=== PATIENT | female | born 1935 | race Caucasian/White ===

== ENCOUNTER → 2016-08-29 | Outpatient (CLI) | payer MEDICARE, BC ==
--- NOTE | 2016-08-31 08:38 | MM ---
Reason for exam: screening (asymptomatic). Last mammogram was performed 6 months ago. History: Patient is postmenopausal and has history of high-risk lesion on a previous biopsy at age 74. Benign MG stereo VAD BX LT of the left breast, September 09, 2015. High risk left breast needle localization of both breasts, September 20, 2010. High risk left mammotome panel of the left breast, September 01, 2010. Benign left US cyst aspiration ea add of the left breast, January 04, 2006. Benign left US cyst aspiration of the left breast, January 04, 2006. Benign stereotactic core biopsy of the right breast, June 30, 2000. Benign cyst aspiration of the left breast, March 03, 1998. Physical Findings: A clinical breast exam by your physician is recommended on an annual basis and results should be correlated with mammographic findings. MG 3D Screening Mammo W/Cad Bilateral CC and MLO view(s) were taken. Prior study comparison: February 29, 2016, left breast MG 3d diag mammo w/cad LT. August 21, 2015, bilateral MG 3d diag mammo w/cad ERIN. August 09, 2011, CAD bilateral diagnostic mammogram. The breast tissue is heterogeneously dense. This may lower the sensitivity of mammography. Previous mammotome biopsy in the right and left breast. There is chronic nodularity in the left breast. New nodular focal asymmetry lower inner quadrant posterior right breast. ASSESSMENT: Incomplete: need additional imaging evaluation, BI-RAD 0 RECOMMENDATION: Special view mammogram and ultrasound of the right breast. [facility] will attempt to contact patient to return for supplemental views and ultrasound.
== END | disposition home or self-care (01) ==
LOC: RADMAMWWP 13:24
PROVIDERS: ATTEND Family Medicine
DX: Z12.31 Encounter for screening mammogram for malignant neoplasm of breast (principal)
CPT/HCPCS: 77063; G0202

== ENCOUNTER → 2016-09-06 | Outpatient (CLI) | payer MEDICARE, BC ==
--- NOTE | 2016-09-07 08:01 | MM ---
Reason for exam: additional evaluation requested from abnormal screening. Last mammogram was performed less than 1 month ago. History: Patient is postmenopausal and has history of high-risk lesion on a previous biopsy at age 74. Benign MG stereo VAD BX LT of the left breast, September 09, 2015. High risk left breast needle localization of both breasts, September 20, 2010. High risk left mammotome panel of the left breast, September 01, 2010. Benign left US cyst aspiration ea add of the left breast, January 04, 2006. Benign left US cyst aspiration of the left breast, January 04, 2006. Benign stereotactic core biopsy of the right breast, June 30, 2000. Benign cyst aspiration of the left breast, March 03, 1998. Physical Findings: Nurse Summary: 0.5cm nodule in th right breast at 12 and 3 o'clock and a 0.5cm nodule in the left breast at 12 o'clock (nurse kp). MG 3D Work Up W/Cad RT ML view(s) were taken of the right breast. Prior study comparison: August 29, 2016, bilateral MG 3d screening mammo w/cad. February 29, 2016, left breast MG 3d diag mammo w/cad LT. August 21, 2015, bilateral MG 3d diag mammo w/cad ERIN. Focal asymmetry. Area of concern does not go away on additional views. These results were verbally communicated with the patient and result sheet given to the patient on 09/06/16. ASSESSMENT: Incomplete: need additional imaging evaluation, BI-RAD 0 RECOMMENDATION: Ultrasound of both breasts. (palpable left and mammogram abnormality right)
--- NOTE | 2016-09-07 08:03 | USB ---
Reason for exam: additional evaluation requested from abnormal screening. History: Patient is postmenopausal and has history of high-risk lesion on a previous biopsy at age 74. Benign MG stereo VAD BX LT of the left breast, September 09, 2015. High risk left breast needle localization of both breasts, September 20, 2010. High risk left mammotome panel of the left breast, September 01, 2010. Benign left US cyst aspiration ea add of the left breast, January 04, 2006. Benign left US cyst aspiration of the left breast, January 04, 2006. Benign stereotactic core biopsy of the right breast, June 30, 2000. Benign cyst aspiration of the left breast, March 03, 1998. US Breast Workup Limited ERIN Right breast ultrasound demonstrates a 0.5 x 0.5 x 0.5cm round, cystic lesion at 12 o'clock, a 0.5 x 0.4 x 0.5cm round, hypoechoic lesion at 12 o'clock and a 0.3 x 0.3 x 0.4cm oval lesion too small to characterize at 6 o'clock. Left breast ultrasound demonstrates a 0.4 x 0.3 x 0.5cm oval lesion too small to characterize at BB at 12 o'clock. These results were verbally communicated with the patient and result sheet given to the patient on 09/06/16. ASSESSMENT: Probably benign, BI-RAD 3 RECOMMENDATION: Follow-up diagnostic mammogram of the right breast in 6 months. Ultrasound of both breasts in 6 months.
== END | disposition home or self-care (01) ==
LOC: RADMAMWWP 13:38
PROVIDERS: ATTEND Family Medicine
DX: R92.8 Other abnormal and inconclusive findings on diagnostic imaging of breast (principal)
CPT/HCPCS: 76642; G0206; G0279

== ENCOUNTER → 2016-12-30 | Outpatient (CLI) | payer MEDICARE, BC ==
[2016-12-30 09:48] LABS: ALT 27 U/L (9-52); AST 17 U/L (14-36); Cholesterol 152 mg/dL (<200); HDL Cholesterol 95 mg/dL (40-60); Triglycerides 66 mg/dL (<150)
== END | disposition home or self-care (01) ==
LOC: LABWHC1 09:02
PROVIDERS: ATTEND Internal Medicine Interventional Cardiology
DX: E78.2 Mixed hyperlipidemia (principal)
CPT/HCPCS: 36415; 80061; 84450; 84460

== ENCOUNTER → 2017-03-15 | Outpatient (CLI) | payer MEDICARE, BC ==
--- NOTE | 2017-03-16 10:58 | MM ---
Reason for exam: follow-up at short interval from prior study. Last mammogram was performed 6 months ago. History: Patient is postmenopausal and has history of high-risk lesion on a previous biopsy at age 74. Benign MG stereo VAD BX LT of the left breast, September 09, 2015. High risk left breast needle localization of both breasts, September 20, 2010. High risk left mammotome panel of the left breast, September 01, 2010. Benign left US cyst aspiration ea add of the left breast, January 04, 2006. Benign left US cyst aspiration of the left breast, January 04, 2006. Benign stereotactic core biopsy of the right breast, June 30, 2000. Benign cyst aspiration of the left breast, March 03, 1998. Physical Findings: Nurse Summary: 0.5/0.5cm nodule in the right breast at 3 o'clock/12 o'clock and a 0.5cm nodule in the left breast at 12 o'clock (nurse ts). MG 3D Diag Mammo W/Cad ERIN Bilateral CC and MLO view(s) were taken. Prior study comparison: September 06, 2016, right breast MG 3d work up w/cad RT. August 29, 2016, bilateral MG 3d screening mammo w/cad. The breast tissue is heterogeneously dense. This may lower the sensitivity of mammography. Stable benign calcifications. Increasing nodularity in the right breast at 3 o'clock. These results were verbally communicated with the patient and result sheet given to the patient on 03/15/17. ASSESSMENT: Incomplete: need additional imaging evaluation, BI-RAD 0 RECOMMENDATION: Ultrasound of both breasts. Manage patient on a clinical basis.
--- NOTE | 2017-03-16 11:09 | USB ---
Reason for exam: additional evaluation requested from abnormal screening. History: Patient is postmenopausal and has history of high-risk lesion on a previous biopsy at age 74. Benign MG stereo VAD BX LT of the left breast, September 09, 2015. High risk left breast needle localization of both breasts, September 20, 2010. High risk left mammotome panel of the left breast, September 01, 2010. Benign left US cyst aspiration ea add of the left breast, January 04, 2006. Benign left US cyst aspiration of the left breast, January 04, 2006. Benign stereotactic core biopsy of the right breast, June 30, 2000. Benign cyst aspiration of the left breast, March 03, 1998. US Breast BILAT Right breast ultrasound includes all four quadrants, the retroareolar region and axilla. Finding demonstrates a 0.5 x 0.5 x 0.4cm mixed lesion at 12 o'clock, a 0.4 x 0.4 x 0.4cm cystic lesion at 12 o'clock, a 0.4 x 0.4 x 0.3cm cystic lesion at 3 o'clock, a 0.8 x 0.6 x 0.4cm solid, hypoechoic lesion at 3 o'clock at palpable for which a biopsy is recommended and a 0.4 x 0.4 x 0.2cm cystic lesion at 7 o'clock. Left breast ultrasound includes all four quadrants, the retroareolar region and axilla. Finding demonstrates a 0.4 x 0.3 x 0.2cm cystic lesion at 12 o'clock, a 0.4 x 0.3 x 0.3cm cystic lesion at 2 o'clock and a 0.5 x 1.1 x 0.3cm cystic lesion at 7 o'clock. These results were verbally communicated with the patient and result sheet given to the patient on 03/15/17. ASSESSMENT: Suspicious, BI-RAD 4 RECOMMENDATION: Ultrasound core biopsy of the right breast. (3 o'clock) Called Dr. De Los Santos with mammographic findings and has scheduled an appointment for the patient for 04/13/17 at 10:[address] Connors. Biopsy scheduled for 03/23/17 at 12:20. PRELIMINARY REPORT CALLED AND FAXED TO DR. CONNORS ON 03/16/17 /TP.
== END | disposition home or self-care (01) ==
LOC: RADMAMWWP 13:05
PROVIDERS: ATTEND Family Medicine
DX: R92.8 Other abnormal and inconclusive findings on diagnostic imaging of breast (principal); N64.4 Mastodynia; Z85.3 Personal history of malignant neoplasm of breast; Z85.42 Personal history of malignant neoplasm of other parts of uterus
CPT/HCPCS: 76641; G0204; G0279

== ENCOUNTER → 2017-03-27 | Day surgery (SDC) | payer MEDICARE, BC ==
[2017-03-27 11:47] LABS: INR 1.1 (<1.2); Partial Thromboplastin Time 22.5 sec (22.0-30.0); Prothrombin Time 10.7 sec (9.0-12.0)
[2017-03-27 11:57] VITALS: RESP 18; TEMP 97.2; BMI 25.8
--- NOTE | 2017-03-27 13:32 | USB ---
EXAMINATION TYPE: US biopsy breast VAD RT, MG diagnostic mammo RT wo CAD DATE OF EXAM: 03/27/2017 CLINICAL HISTORY: R92.8 Previous Abnormal Mammogram. TECHNIQUE: Ultrasound guided core biopsy of right 3:00 breast. COMPARISON: NONE FINDINGS: The procedure of ultrasound guided core biopsy was explained to the patient. Benefits, alternatives, and risks were discussed. An informed consent was then obtained. The patient was placed in supine positioning for imaging and for the procedure. The overlying skin was prepped and draped in usual sterile fashion. Lidocaine buffered with bicarbonate was used as anesthetic into the skin and subcutaneous tissue up to area of concern in the right 3:00 breast. A sharron was made with surgical scalpel. Under ultrasound guidance, a 12-gauge vacuum assisted biopsy gun device was used to obtain 4 core samples. Following this, a biopsy clip was left in lesion. The patient tolerated the procedure well without any immediate complication. The patient was kept in the radiology department for short stay after the procedure and then discharged home in stable condition. IMPRESSION: Successful, uncomplicated ultrasound guided core biopsy of area of concern in the right 3:00 breast, full pathology results to follow. Pathology Results: Malignant BREAST, RIGHT, ULTRASOUND GUIDED CORE BIOPSY: INVASIVE CARCINOMA, PENDING SPECIAL STAINS. ADDENDUM REPORT BREAST, RIGHT, ULTRASOUND GUIDED CORE BIOPSY: INVASIVE MAMMARY CARCINOMA. SEE COMMENT. Recommendation Surgical consult of the right breast. EBEND
[2017-03-27 14:42] VITALS: BP 122/76; PULSE 75
== END ==
LOC: RADUSWWP 10:55
PROVIDERS: ATTEND Surgery
DX: C50.911 Malignant neoplasm of unspecified site of right female breast (principal); Z88.1 Allergy status to other antibiotic agents; Z88.5 Allergy status to narcotic agent
CPT/HCPCS: 88305; 85610; 85730; 88342; 19083; G0206; A4648; J2001

== ENCOUNTER → 2017-04-03 | Outpatient (CLI) | payer MEDICARE, BC ==
--- NOTE | 2017-04-03 10:22 | US ---
EXAMINATION TYPE: US axilla RT DATE OF EXAM: 04/03/2017 COMPARISON: NONE CLINICAL HISTORY: R59.1 lymphadenopathy. Recently diagnosed with rt breast ca, fleshy soft tissue wit hin both axilla, assess rt for adenopathy Scanned the right axilla, normal appearing tissue, negative scan. No suspicious adenopathy is seen in the right axilla on images saved. IMPRESSION: As above.
== END ==
LOC: RADUSWWP 09:41
PROVIDERS: ATTEND Surgery
DX: R59.1 Generalized enlarged lymph nodes (principal)
CPT/HCPCS: 99204

== ENCOUNTER 2017-04-24 07:55 | Day surgery (SDC) | payer MEDICARE, BC ==
[2017-04-18 13:13] VITALS: BMI 25.2
[~2017-04-24 07:55] MED LIST: DEXAMETHASONE SOD PHOSPHATE 10 MG/ML 1 ML VIAL IV ONE; HEPARIN SODIUM,PORCINE 5,000 UNIT/ML 1 ML VIAL SQ ONE; LACTATED RINGERS 1,000 ML IV SCH; LIDOCAINE 1% 20 ML VIAL (10MG/ML) FOR IV START INTRADERMA PRN; MIDAZOLAM 2 MG/2 ML VIAL IV PRN; ONDANSETRON 4 MG/2 ML VIAL IVP ONE; Pre Op ABX Message 1 EACH MISC MISCELLANE ONE; SCOPOLAMINE 1.5MG/72HR PATCH TRANSDERM ONE
[2017-04-24 08:47] LABS: Prothrombin Time 10.5 sec (9.0-12.0)
[2017-04-24] MEDS ORDERED: LIDOCAINE 1% INJ 10MG/ML (20 ML MDV) SQ ONE (09:49)
[2017-04-24] MEDS ORDERED: SODIUM BICARB 4% 5 ML VIAL (0.48 MEQ/ML) MISCELLANE ONE (09:49)
[2017-04-24] MEDS ORDERED: NALOXONE 0.4 MG/ML 1 ML VIAL ONE (11:24)
[2017-04-24] MEDS ORDERED: PHENYLEPHRINE-0.9% NACL SYG 1 MG/10 ML SYRINGE ONE (11:24)
[2017-04-24] MEDS ORDERED: PROPOFOL 10 MG/ML 20 ML VIAL IV ONE (11:24)
[2017-04-24] MEDS ORDERED: fentaNYL (PF) 50 MCG/ML 2 ML AMP ONE (11:24)
--- NOTE | 2017-04-24 11:29 | NM ---
EXAMINATION TYPE: NM sentinel node injection DATE OF EXAM: 04/24/2017 COMPARISON: Exams dating back to 09/06/2016. HISTORY: Right breast invasive carcinoma TECHNIQUE AND FINDINGS: The procedure of sentinel lymph node injection was explained to the patient. The benefits, alternatives, and risks were discussed. An informed consent was then obtained. Overlying skin is cleaned with sterile alcohol. Lidocaine buffered with bicarbonate was used as anes thetic into the skin and subcutaneous tissue surrounding the nipple. Following this, 504 uCi Tc 99m Filtered Sulfur Colloid was injected into 4 equivalent doses at 12, 3, 6, and 9:00 position surroundi ng the right nipple intradermally. The injection sites were massaged by non licensed nuclear plant operator for 10 minutes after injection. T he patient tolerated the procedure well without any immediate complication. The patient was kept in the radiology department for short stay after the procedure and then taken to surgery for surgical pr ocedure what is presumed intraoperative gamma probe will be used for sentinel lymph node detection. IMPRESSION: Right breast radiotracer injection for sentinel node localization as above.
[2017-04-24] MEDS ORDERED: SODIUM CHLORIDE 0.9% 100 ML with CLINDAMYCIN 600 MG IV ONE ×2 (11:38)
[2017-04-24] MEDS ORDERED: BUPIVACAINE (PF) 0.25% 30 ML VIAL SQ ONE ×2 (11:58)
[2017-04-24] MEDS ORDERED: METHYLENE BLUE 10 MG/ML (10 ML VIAL) INJ ONE (11:58)
[2017-04-24 12:59] VITALS: TEMP 97.1
[2017-04-24] MEDS: HYDROmorphone 0.5 MG/0.5 ML SYRINGE IVP PRN ×2 (13:06→13:13)
--- NOTE | 2017-04-24 13:08 | P.OP ---
Date of Procedure: 04/24/17 Procedure(s) Performed: PREOPERATIVE DIAGNOSIS: Right breast cancer POSTOPERATIVE DIAGNOSIS: Same PROCEDURE: Right Breast wire localization lumpectomy with sentinel lymph node biopsy SURGEON: Waylon EBL: Minimal ANESTHESIA: General COMPLICATIONS: None OPERATIVE PROCEDURE: Patient was placed on the operating room table in the supine position. 2 mL of methylene blue was injected into the subareolar space. The breast was then massaged for 5 minutes. The right axilla was addressed at that time. The hot spot in the right axilla was identified. A small curvilinear incision was made using the scalpel. Dissection down through the saphenous tissues took place using electrocautery. Using the neoprobe I identified a total of 3 sentinel lymph nodes. 2 of these were blue in color. These were all removed and sent to pathology for close examination. Frozen sections from these lymph nodes were negative for metastatic disease. No bleeding was seen. The subcutaneous tissues were closed using 3-0 Vicryl sutures. The skin was closed using 4-0 Monocryl sutures. The wire entrance site was then addressed. This was present at the 3:00 location. A horizontal incision was made adjacent to the wire entrance site. I followed the wire down into the breast tissue. An adequate lumpectomy specimen then took place around the wire. The patient had relatively small volume of breast tissue between the skin anteriorly and the chest wall posteriorly. Upon palpation of the lumpectomy specimen and I was somewhat concerned about our anterior and our medial margin. For that reason I did take an additional slim portion of tissue anteriorly and medially as well. These were both sent separately in formalin. The new margins were painted the appropriate colors. The lumpectomy specimen itself was also painted on all 6 size the appropriate color. Irrigation took place and no bleeding was seen. I used the clip rod pointer to yaya our lumpectomy cavity circumferentially. The clip was confirmed to be within the lumpectomy specimen by radiology. The subcutaneous tissues were closed using 3-0 Vicryl sutures. The skin was closed using a running 4-0 Monocryl stitch. Steri- Strips and sterile dressings were applied. DISPOSITION: Stable to recovery room
[2017-04-24 13:36] VITALS: RESP 16
[2017-04-24 15:04] VITALS: BP 135/77; PULSE 92
--- NOTE | 2017-04-24 16:18 | MM ---
EXAMINATION TYPE: MG pre op needle loc RT, MG surgical specimen RT DATE OF EXAM: 04/24/2017 COMPARISON: 03/27/2017 CLINICAL HISTORY: Invasive ductal carcinoma TECHNIQUE: Needle localization with wire placement and surgical excision of area of concern in the right breast. FINDINGS: The procedure of needle localization with wire placement and than surgical excision was explained to the patient. Benefits, alternatives, and risks were discussed. An informed consent was then obtained. The shortest pathway for procedure was chosen. Shortest pathway was medial to lateral approach. The overlying skin was prepped and draped in usual sterile fashion. Lidocaine buffered with bicarbonate was used as anesthetic into the skin and subcutaneous tissue up to the level of area of concern. A 5 cm needle was used. It was placed via a medial collateral approach under mammographic guidance. Subsequent 90 degrees mammogram show the needle to be in satisfactory position relative to the targeted area. At this point, wire was placed and the needle was withdrawn. The wire was fixed to patient's skin. Images were marked for surgeon. The patient tolerated the procedure well without any immediate complication. The patient was kept in the radiology department for short stay after the procedure and then taken to surgery for surgical excision. Targeted density and coil biopsy marker and wire are identified in specimen mammogram. The patient was kept in hospital for short stay after the procedure and then discharged home in stable condition. IMPRESSION: Successful, uncomplicated needle localization with wire placement and surgical excision of targeted density and coil biopsy marker in the right breast, full pathology results to follow. Pathology Results: Malignant A. SENTINEL LYMPH NODE #1, BIOPSY: LYMPH NODE NEGATIVE FOR METASTASIS. CK7 AND VENANCIO IMMUNOPEROXIDASE STAINS ARE CONFIRMATORY (CONTROLS APPROPRIATE). B. SENTINEL LYMPH NODE #2, BIOPSY: LYMPH NODE NEGATIVE FOR METASTASIS. CK7 AND VENANCIO IMMUNOPEROXIDASE STAINS ARE CONFIRMATORY (CONTROLS APPROPRIATE). C. SENTINEL LYMPH NODE #3, BIOPSY: TWO LYMPH NODES NEGATIVE FOR METASTASIS. CK7 AND VENANCIO IMMUNOPEROXIDASE STAINS ARE CONFIRMATORY (CONTROLS APPROPRIATE). D. BREAST, RIGHT, LUMPECTOMY: INVASIVE LOBULAR CARCINOMA, MARGINS NEGATIVE FOR INVASIVE MALIGNANCY. EXTENSIVE LOBULAR CARCINOMA IN SITU, CLASSICAL AND PLEOMORPHIC TYPES. PLEOMORPHIC LCIS IS LESS THAN 1 MM FROM MARGINS MULTIFOCALLY. SEE SURGICAL PATHOLOGY CANCER CASE SUMMARY AND COMMENT. E. BREAST, RIGHT, NEW ANTERIOR MARGIN, EXCISION: LOBULAR LOBULAR CARCINOMA IN SITU (LCIS), CLASSICAL AND PLEOMORPHIC TYPES. CANNOT EXCLUDE INVOLVEMENT OF THE NEW ANTERIOR MARGIN BY PLEOMORPHIC LCIS. INTRADUCTAL PAPILLOMA INVOLVED BY LCIS. FIBROCYSTIC CHANGES INCLUDING USUAL TYPE DUCTAL HYPERPLASIA, CYSTS, COLUMNAR CELL HYPERPLASIA, APOCRINE METAPLASIA, FIBROSIS AND CALCIFICATIONS. SEE COMMENT. F. BREAST, RIGHT, NEW MEDIAL MARGIN, EXCISION: LOBULAR CARCINOMA IN SITU (LCIS) , PLEOMORPHIC AND CLASSICAL TYPES. PLEOMORPHIC LCIS LESS THAN 1 MM FROM THE NEW MEDIAL MARGIN. BACKGROUND FIBROCYSTIC CHANGES. SEE COMMENT. Recommendation Surgical consult of the right breast. EBEND
== END 2017-04-24 16:00 | disposition home or self-care (01) ==
LOC: OR 07:55
PROVIDERS: ATTEND Surgery
DX: C50.811 Malignant neoplasm of overlapping sites of right female breast (principal); N60.11 Diffuse cystic mastopathy of right breast; N60.81 Other benign mammary dysplasias of right breast; I10 Essential (primary) hypertension; E78.5 Hyperlipidemia, unspecified; I48.91 Unspecified atrial fibrillation; J44.9 Chronic obstructive pulmonary disease, unspecified; G47.33 Obstructive sleep apnea (adult) (pediatric); E07.9 Disorder of thyroid, unspecified; Z88.5 Allergy status to narcotic agent; Z88.1 Allergy status to other antibiotic agents
CPT/HCPCS: 19301; 38500; 38792; 19281; 85610; 88342; 88331; 88307; 88341; 76098; A9541; J1644; J1100; J2310; J2405; J2001; Q9968; J3010; J2370; J2704; J1170

== ENCOUNTER → 2017-07-13 | Outpatient (CLI) | payer MEDICARE, BC ==
[2017-07-13 10:35] LABS: ALT 32 U/L (9-52); AST 15 U/L (14-36); Anion Gap 6 mmol/L; Blood Urea Nitrogen 16 mg/dL (7-17); Calcium 9.2 mg/dL (8.4-10.2); Carbon Dioxide 39 mmol/L (22-30); Chloride 97 mmol/L (98-107); Cholesterol 170 mg/dL (<200); Glucose 84 mg/dL (74-99); HDL Cholesterol 106 mg/dL (40-60); LDL Cholesterol,Calculated 47 mg/dL (0-99); Potassium 4.2 mmol/L (3.5-5.1); Sodium 142 mmol/L (137-145); Triglycerides 85 mg/dL (<150)
== END | disposition home or self-care (01) ==
LOC: LABWHC1 09:42
PROVIDERS: ATTEND Nurse Practitioner Adult Health
DX: E78.2 Mixed hyperlipidemia (principal); I48.2 Chronic atrial fibrillation
CPT/HCPCS: 36415; 80048; 80061; 84450; 84460

== ENCOUNTER → 2017-08-14 | Outpatient (CLI) | payer MEDICARE, BC ==
--- NOTE | 2017-08-14 18:05 | BD ---
EXAMINATION TYPE: MG DEXA axial skeleton. DATE OF EXAM: 08/14/2017 COMPARISON: NONE CLINICAL HISTORY: 81 year-old female history of breast cancer, postmenopausal symptoms Height: 62.5 IN Weight: 149 LBS FRAX RISK QUESTIONS: Alcohol (3 or more units per day): NO Family History (Parent hip fracture): NO Glucocorticoids (More than 3mos): NO (Ex: prednisone, prednisolone, methylprednisolone, dexamethasone, and hydrocortisone). History of Fracture in Adulthood: NO Secondary Osteoporosis: 1. Type 1 Diabetes: NO 2. Hyperthyroidism: NO 3. Menopause before 45: NO AGE 48 4. Malnutrition: NO 5. Chronic liver disease: NO Rheumatoid Arthritis: NO Current Tobacco Use: NO RISK FACTORS HISTORY OF: Active: MODERATE Postmenopausal woman: AGE 48 MEDICATIONS: Prednisone or other steroids: NO How Long: PT IS TAKING PREDNISONE. STARTED 4 DAYS AGO. 20 MORE DAYS. 10 MG PER PILL. Additional Medications: VIT D3,DIGOXIN, VERAPAMIL, ALBUTEROL, ATORVASTATIN, METOPROLOL, SPIRONOLACTON E, WARFARIN, BIOTIN, Additional History: BREAST CANCER WITH RADIATION AGE 81 EXAM MEASUREMENTS: Bone mineral densitometry was performed using the [email or web address] System. Bone mineral density as measured about the Lumbar spine is: ----- L1-L4(G/cm2): 0.995 T Score Values are as follows: ----- L2: -2.6 ----- L3: -1.8 ----- L4: 0.2 ----- L1-L4: -1.5 Bone mineral density BASELINE Bone mineral density about the R hip (g/cm2): 0.772 Bone mineral density about the L hip (g/cm2): 0.777 T Score values are as follows: -----R Neck: -1.9 -----L Neck: -1.9 -----R Total: -0.9 -----L Total: -1.0 Bone mineral density BASELINE IMPRESSION: Osteopenia (T Score between -2.5 and -1 as noted by T score values in the lumbar spine and hips). No te that measurements border on osteoporosis in the lumbar spine. There is slightly increased risk of fracture and the patient may be considered for treatment. Re-Screen 2-5 years. NOTE: T-SCORE=SD OF THE YOUNG ADULT MEAN.
== END | disposition home or self-care (01) ==
LOC: RADBDWWP 09:38
PROVIDERS: ATTEND Internal Medicine Hematology & Oncology
DX: M85.88 Other specified disorders of bone density and structure, other site (principal); M85.852 Other specified disorders of bone density and structure, left thigh; M85.851 Other specified disorders of bone density and structure, right thigh; Z78.0 Asymptomatic menopausal state
CPT/HCPCS: 77080

== ENCOUNTER → 2017-11-09 | Outpatient (CLI) | payer MEDICARE, BC ==
--- NOTE | 2017-11-09 13:10 | CT ---
EXAMINATION TYPE: CT brain wo con DATE OF EXAM: 11/09/2017 COMPARISON: NONE INDICATION: Personal history of breast cancer. Speech disturbance. DLP: 1108.40 mGycm, Automated exposure control for dose reduction was used. CONTRAST: None CT of the brain is performed utilizing 3 mm thick sections through the posterior fossa and 3 mm thick sections through the remaining calvarium. Study is performed within 24 hours of arrival to the hosp ital. No abnormal hyperdensity is present to suggest an acute intracranial hemorrhage. No mass lesion is evident. No acute infarcts are evident. Mild periventricular white matter hypodensity is present, likely on th e basis of chronic white matter ischemic changes. Ventricles and sulci are appropriate for the patient age. There is mucosal thickening within the left maxillary sinus. Mild mucosal thickening or retention cys ts within the anterior right ethmoid air cells. Remaining paranasal sinuses and mastoid air cells are clear IMPRESSIONS: 1. Periventricular white matter ischemic changes. 2. Mucosal thickening with possible fluid level within the left maxillary sinus. Correlate for acute left maxillary sinusitis.
--- NOTE | 2017-11-09 14:51 | MM ---
Reason for exam: follow-up at short interval from prior study. Last mammogram was performed 7 months ago. History: Patient is postmenopausal, has history of breast cancer at age 81, and has history of high-risk lesion on a previous biopsy at age 74. Malignant MG pre op needle loc RT of the right breast, April 24, 2017. Malignant US biopsy breast VAD RT of the right breast, March 27, 2017. Benign MG stereo VAD BX LT of the left breast, September 09, 2015. High risk left breast needle localization of both breasts, September 20, 2010. High risk left mammotome panel of the left breast, September 01, 2010. Benign left US cyst aspiration ea add of the left breast, January 04, 2006. Benign left US cyst aspiration of the left breast, January 04, 2006. Benign stereotactic core biopsy of the right breast, June 30, 2000. Benign cyst aspiration of the left breast, March 03, 1998. Physical Findings: Nurse did not find any significant physical abnormalities on exam. MG 3D Diag Mammo W/Cad ERIN Bilateral CC and MLO view(s) were taken. Prior study comparison: March 27, 2017, right breast MG diagnostic mammo RT wo CAD. March 15, 2017, bilateral MG 3d diag mammo w/cad ERIN. The breast tissue is heterogeneously dense. This may lower the sensitivity of mammography. Finding: Architectural distortion/clips in the right breast consistent with known lumpectomy. Previous mammotome biopsy in the right breast. Asymmetric breast tissue in the left breast is stable. There is no discrete abnormality. These results were verbally communicated with the patient and result sheet given to the patient on 11/09/17. ASSESSMENT: Benign, BI-RAD 2 RECOMMENDATION: Follow-up diagnostic mammogram of both breasts in 1 year.
== END | disposition home or self-care (01) ==
LOC: RADCTMAIN 12:35
PROVIDERS: ATTEND Family Medicine
DX: R90.89 Other abnormal findings on diagnostic imaging of central nervous system (principal); R47.9 Unspecified speech disturbances; Z85.3 Personal history of malignant neoplasm of breast
CPT/HCPCS: 77066; 70450; G0279; 77062

== ENCOUNTER 2018-01-18 09:02 | Emergency (ER) | payer MEDICARE, BC ==
[2018-01-18] MEDS ORDERED: SODIUM CHLORIDE 0.9% 1,000 ML IV STA (09:24)
--- NOTE | 2018-01-18 09:38 | ED ---
General Adult HPI - General Chief complaint: Fall Stated complaint: Fall, Diff Breathing Time Seen by Provider: 01/18/18 09:06 Source: patient, EMS, RN notes reviewed, old records reviewed Mode of arrival: EMS Limitations: no limitations - History of Present Illness Initial comments: This is an 82-year-old female to the ER for evaluation. States she presents for evaluation regards to syncopal event. Patient states she has chronic shortness of breath is mild shortness of breath today. She has COPD. Patient states she was in her bathroom prior to arrival and woke up and her Tylenol, area and her shower she was unable to get out of her shower. EMS was called patient was brought to ER for evaluation. Patient is complaining of mild headache and mild hip pain. Patient has no other specific complaints. Denies headache chest pain shortness of breath or abdominal pain prior to falling into the tub, passing out - Related Data Home Medications Medication Instructions Recorded Confirmed Digoxin [Lanoxin] 125 mcg PO DAILY 02/25/14 01/18/18 Albuterol Sulfate [Ventolin HFA] 1 - 2 puff INHALATION RT-QID PRN 05/30/1401/18 Cholecalciferol [Vitamin D3] 1,000 unit PO DAILY 03/21/17 01/18/18 Furosemide [Lasix] 20 mg PO DAILY PRN 03/21/17 01/18/18 Metoprolol Succinate [Toprol XL] 25 mg PO DAILY 03/21/17 01/18/18 Spironolactone [Aldactone] 25 mg PO DAILY 03/21/17 01/18/18 Verapamil [Isoptin] 40 mg PO BID 03/21/17 01/18/18 Warfarin [Coumadin] 5 mg PO SUTUTHSA 03/21/17 01/18/18 Atorvastatin [Lipitor] 20 mg PO HS 04/18/17 01/18/18 Budesonide [Pulmicort] 0.5 mg INHALATION RT-HS 04/18/17 01/18/18 Omalizumab [Xolair] 1 dose SQ Q14D 04/18/17 04/24/17 Warfarin [Coumadin] 7.5 mg PO MOWEFR 04/18/17 01/18/18 Tamoxifen Citrate 20 mg PO DAILY 01/18/18 01/18/18 Previous Rx's Medication Instructions Recorded traMADol HCl [Ultram] 50 mg PO Q6H PRN #30 tab 04/24/17 Allergies Allergy/AdvReac Type Severity Reaction Status Date / Time cefaclor [From Ceclor] Allergy "TONGUE Verified 01/18/18 10:08 TURNED BRIGHT RED" codeine Allergy diff to Verified 01/18/18 10:08 wake up Review of Systems ROS Statement: Those systems with pertinent positive or pertinent negative responses have been documented in the HPI. ROS Other: All systems not noted in ROS Statement are negative. Past Medical History Past Medical History: Atrial Fibrillation, COPD, Hyperlipidemia, Hypertension, Osteoarthritis (OA), Sleep Apnea/CPAP/BIPAP, Thyroid Disorder Additional Past Medical History / Comment(s): Rheumatic fever as child, tachycardia. NOT USING TX FOR SLEEP APNEA. On O2 3L NC. BLADDER LEAKAGE. RT BREAST CANCER CURRENTLY. History of Any Multi-Drug Resistant Organisms: None Reported Past Surgical History: Breast Surgery, Hernia Repair Additional Past Surgical History / Comment(s): law cataract. LT Breast biopsy. CARDIOVERSION Past Anesthesia/Blood Transfusion Reactions: Previous Problems w/ Anesthesia, Motion Sickness Additional Past Anesthesia/Blood Transfusion Reaction / Comment(s): Difficulty waking up out of general anesthesia. Past Psychological History: Anxiety, Panic Disorder Smoking Status: Former smoker Past Alcohol Use History: None Reported Past Drug Use History: None Reported - Past Family History Father Family Medical History: Cancer Mother Family Medical History: Cancer Daughter(s) Family Medical History: Cancer General Exam Limitations: no limitations General appearance: alert, in no apparent distress Head exam: Present: atraumatic, normocephalic, normal inspection Eye exam: Present: normal appearance, PERRL, EOMI. Absent: scleral icterus, conjunctival injection, periorbital swelling ENT exam: Present: normal exam, mucous membranes moist Neck exam: Present: normal inspection. Absent: tenderness, meningismus, lymphadenopathy Respiratory exam: Present: normal lung sounds bilaterally. Absent: respiratory distress, wheezes, rales, rhonchi, stridor Cardiovascular Exam: Present: regular rate, normal rhythm, normal heart sounds. Absent: systolic murmur, diastolic murmur, rubs, gallop, clicks GI/Abdominal exam: Present: soft, normal bowel sounds. Absent: distended, tenderness, guarding, rebound, rigid Extremities exam: Present: normal inspection, full ROM, normal capillary refill. Absent: tenderness, pedal edema, joint swelling, calf tenderness Back exam: Present: normal inspection Neurological exam: Present: alert, oriented X3, CN II-XII intact Psychiatric exam: Present: normal affect, normal mood Skin exam: Present: warm, dry, intact, normal color. Absent: rash Course Vital Signs 01/18/18 09:04 Temperature 97.5 F L Pulse Rate 70 Respiratory 20 Rate Blood Pressure 142/78 O2 Sat by Pulse 100 Oximetry - Reevaluation(s) Reevaluation #1: 01/18/18 11:11 Patient reevaluated denying anything for pain. Patient states she would like to be discharged home EKG Findings - EKG Comments: EKG Findings:: EKG shows A. fib rate of 99, QRS 60, QTc 408 Medical Decision Making - Medical Decision Making 82 female the ER status post syncopal event fall. No cause of syncope found here in the ER patient is in no acute distress denies any complaints of shortness of breath. Patient has normal computed tomography scan, x-rays. Patient can be discharged home - Lab Data Result diagrams: 01/18/18 09:50 01/18/18 09:50 Lab Results 01/18/18 01/18/18 01/18/18 Range/Units 09:50 09:50 09:50 WBC 9.5 (3.8-10.6) k/uL RBC 4.22 (3.80-5.40) m/uL Hgb 12.5 (11.4-16.0) gm/dL Hct 40.6 (34.0-46.0) % MCV 96.2 (80.0-100.0) fL MCH 29.7 (25.0-35.0) pg MCHC 30.9 L (31.0-37.0) g/dL RDW 13.7 (11.5-15.5) % Plt Count 98 L (150-450) k/uL Neutrophils % 90 % Lymphocytes % 4 % Monocytes % 5 % Eosinophils % 0 % Basophils % 0 % Neutrophils # 8.5 H (1.3-7.7) k/uL Lymphocytes # 0.3 L (1.0-4.8) k/uL Monocytes # 0.5 (0-1.0) k/uL Eosinophils # 0.0 (0-0.7) k/uL Basophils # 0.0 (0-0.2) k/uL Manual Slide Review Performed Hypochromasia Slight PT (9.0-12.0) sec INR (<1.2) APTT (22.0-30.0) sec D-Dimer (<0.60) mg/L FEU Sodium 141 (137-145) mmol/L Potassium 4.8 (3.5-5.1) mmol/L Chloride 95 L (98-107) mmol/L Carbon Dioxide 43 H* (22-30) mmol/L Anion Gap 3 mmol/L BUN 19 H (7-17) mg/dL Creatinine 0.59 (0.52-1.04) mg/dL Est GFR (CKD-EPI)AfAm >90 (>60 ml/min/1.73 sqM) Est GFR (CKD-EPI)NonAf 86 (>60 ml/min/1.73 sqM) Glucose 104 H (74-99) mg/dL Calcium 8.6 (8.4-10.2) mg/dL Phosphorus 3.9 (2.5-4.5) mg/dL Magnesium 2.0 (1.6-2.3) mg/dL Total Bilirubin 0.5 (0.2-1.3) mg/dL AST 18 (14-36) U/L ALT 31 (9-52) U/L Alkaline Phosphatase 52 (38-126) U/L Total Creatine Kinase 98 (30-135) U/L CK-MB (CK-2) 1.6 (0.0-2.4) ng/mL CK-MB (CK-2) Rel Index 1.6 Troponin I <0.012 (0.000-0.034) ng/mL Total Protein 5.7 L (6.3-8.2) g/dL Albumin 3.6 (3.5-5.0) g/dL 01/18/18 Range/Units 09:50 WBC (3.8-10.6) k/uL RBC (3.80-5.40) m/uL Hgb (11.4-16.0) gm/dL Hct (34.0-46.0) % MCV (80.0-100.0) fL MCH (25.0-35.0) pg MCHC (31.0-37.0) g/dL RDW (11.5-15.5) % Plt Count (150-450) k/uL Neutrophils % % Lymphocytes % % Monocytes % % Eosinophils % % Basophils % % Neutrophils # (1.3-7.7) k/uL Lymphocytes # (1.0-4.8) k/uL Monocytes # (0-1.0) k/uL Eosinophils # (0-0.7) k/uL Basophils # (0-0.2) k/uL Manual Slide Review Hypochromasia PT 30.6 H (9.0-12.0) sec INR 3.4 H (<1.2) APTT 26.0 (22.0-30.0) sec D-Dimer 0.45 (<0.60) mg/L FEU Sodium (137-145) mmol/L Potassium (3.5-5.1) mmol/L Chloride (98-107) mmol/L Carbon Dioxide (22-30) mmol/L Anion Gap mmol/L BUN (7-17) mg/dL Creatinine (0.52-1.04) mg/dL Est GFR (CKD-EPI)AfAm (>60 ml/min/1.73 sqM) Est GFR (CKD-EPI)NonAf (>60 ml/min/1.73 sqM) Glucose (74-99) mg/dL Calcium (8.4-10.2) mg/dL Phosphorus (2.5-4.5) mg/dL Magnesium (1.6-2.3) mg/dL Total Bilirubin (0.2-1.3) mg/dL AST (14-36) U/L ALT (9-52) U/L Alkaline Phosphatase (38-126) U/L Total Creatine Kinase (30-135) U/L CK-MB (CK-2) (0.0-2.4) ng/mL CK-MB (CK-2) Rel Index Troponin I (0.000-0.034) ng/mL Total Protein (6.3-8.2) g/dL Albumin (3.5-5.0) g/dL - Radiology Data Radiology results: report reviewed (Chest x-ray pelvis x-ray negative for traumatic injury CT brain C-spine negative for acute disease), image reviewed Disposition Clinical Impression: Syncope Disposition: HOME SELF-CARE Condition: Good Instructions: Fall Prevention for Older Adults (ED), Syncope (ED) Is patient prescribed a controlled substance at d/c from ED?: No Referrals: Aravind De Los Santos MD [Primary Care Provider] - 1-2 days
[2018-01-18 10:18] LABS: Basophils % (A) 0 %; Eosinophils % (A) 0 %; HCT 40.6 % (34.0-46.0); HGB 12.5 gm/dL (11.4-16.0); Hypochromasia Slight; Lymphocytes # (A) 0.3 k/uL (1.0-4.8); Lymphocytes % (A) 4 %; MCH 29.7 pg (25.0-35.0); MCHC 30.9 g/dL (31.0-37.0); MCV 96.2 fL (80.0-100.0); Mean Platelet Volume 7.4; Monocytes # (A) 0.5 k/uL (0-1.0); Monocytes % (A) 5 %; Neutrophils # (A) 8.5 k/uL (1.3-7.7); Neutrophils % (A) 90 %; RBC 4.22 m/uL (3.80-5.40); RDW 13.7 % (11.5-15.5); WBC 9.5 k/uL (3.8-10.6)
[2018-01-18 10:22] LABS: ALT 31 U/L (9-52); AST 18 U/L (14-36); Albumin 3.6 g/dL (3.5-5.0); Alkaline Phosphatase 52 U/L (38-126); Blood Urea Nitrogen 19 mg/dL (7-17); Calcium 8.6 mg/dL (8.4-10.2); Chloride 95 mmol/L (98-107); Glucose 104 mg/dL (74-99); Phosphorus 3.9 mg/dL (2.5-4.5); Potassium 4.8 mmol/L (3.5-5.1); Sodium 141 mmol/L (137-145); Total Bilirubin 0.5 mg/dL (0.2-1.3); Total Protein 5.7 g/dL (6.3-8.2)
[2018-01-18 10:23] LABS: INR 3.4 (<1.2)
[2018-01-18 10:24] LABS: D-Dimer 0.45 mg/L FEU (<0.60); Prothrombin Time 30.6 sec (9.0-12.0)
[2018-01-18 10:27] LABS: Anion Gap 3 mmol/L
[2018-01-18 10:32] LABS: Carbon Dioxide 43 mmol/L (22-30)
[2018-01-18 10:40] LABS: Platelet Count 98 k/uL (150-450)
[2018-01-18 10:41] LABS: Creatine Kinase 98 U/L (30-135)
--- NOTE | 2018-01-18 10:50 | XR ---
EXAMINATION TYPE: XR chest 1V DATE OF EXAM: 01/18/2018 COMPARISON: Prior chest 08/08/2014 HISTORY: Pain, trauma, difficulty breathing TECHNIQUE: Single frontal view of the chest is obtained. FINDINGS: There are overlying cardiac leads and the patient is rotated, technique somewhat apical lo rdotic. Heart size is stable and thought likely to be enlarged. Postop changes are noted over the rig ht chest. No evident pneumothorax or pleural effusion. IMPRESSION: No acute process.
[2018-01-18 10:53] LABS: Creatine Kinase MB 1.6 ng/mL (0.0-2.4); Troponin I <0.012 ng/mL (0.000-0.034)
--- NOTE | 2018-01-18 10:55 | XR ---
AP pelvis HISTORY: Left-sided pain, trauma Single frontal view of the pelvis Bone mineralization, joint spaces and alignment are maintained. Degenerative disc changes are present in the visualized spine. Probable vascular calcifications within the pelvis. Bone mineralization is reduced. IMPRESSION: No fracture or dislocation is evident. Follow-up as indicated.
--- NOTE | 2018-01-18 11:04 | CT ---
EXAMINATION TYPE: CT brain melvinine wo con DATE OF EXAM: 01/18/2018 COMPARISON: Brain 11/09/2017 HISTORY: 82-year-old female pain, Fall, difficulty breathing CT DLP: 1378.6 mGycm Automated exposure control for dose reduction was used. Technique: Examination of the head was done in axial plane without intravenous contrast. Coronal and sagittal reconstructions performed. CT of the cervical spine was obtained in axial plane without intravenous injection of contrast mater ial. Coronal and sagittal reformatted images were obtained from the axial views for evaluation of f ractures, spinal alignment and canal. FINDINGS: Head: There is no evidence of acute intracranial hemorrhage, acute ischemic changes, mass, mass-effect, or extra-axial fluid collection. There is no effacement of cerebral sulci or basal subarachnoid cister ns. There is no midline shift. Lopez-white matter distinction is preserved. Mild generalized supratentorial volume loss with moderate patchy white matter hypodensities in both c erebral hemispheres. Chronic subcortical hypodensities in the superior right frontal lobe. Mild ventr icular prominence secondary to central cerebral volume loss. Atherosclerotic calcifications within th e carotid siphons. Some lobulated mucosal thickening left maxillary sinus and mild mucosal thickening right ethmoid air cells. Mastoid air cells well pneumatized. Cervical spine: Moderate emphysema in the visualized upper lungs. Biapical pleural parenchymal scarring. Hypertrophic facet and uncovertebral joint degenerative change throughout. Variable mild and moderat e neuroforaminal stenoses throughout. No prevertebral soft tissue swelling or predental space widening. No craniocervical junction abnormal ity. No acute fracture of the cervical spine. Degenerative changes at the C1 dens articulation. There is degenerative grade 1 anterolisthesis at C 4-C5, C5-C6 and C7-T1. Moderate disc/endplate degenerative change from C5 through T1 levels. No significant bony spinal canal narrowing. Detailed assessment of the spinal canal limited from C5 l evel and below due to artifact from the patient's shoulders. Prominent at the scattered calcifications at the left greater than right carotid bifurcations. Incidental stellate bone island within the T3 vertebral body. Sagittal and coronal reformatted images confirm above findings. COMBINED IMPRESSION: 1. Mild atrophy and moderate patchy white matter hypodensities likely relating to chronic small vesse l ischemic disease. Other white matter process such as demyelinating disease could also be in the dif ferential. Clinically correlate. No acute intracranial abnormality otherwise seen. 2. No acute fracture of the cervical spine. Moderate multilevel spondylotic change with grade 1 anter olisthesis at C4-C5, C5-C6, and C7-T1.
[2018-01-18 11:49] VITALS: BP 117/72; PULSE 94; RESP 18; TEMP 97.8
== END 2018-01-18 12:24 | disposition home or self-care (01) ==
LOC: EC 09:02
DX: R55 Syncope and collapse (principal); C50.911 Malignant neoplasm of unspecified site of right female breast; R06.02 Shortness of breath; R51 Headache; M25.559 Pain in unspecified hip; I48.91 Unspecified atrial fibrillation; E78.5 Hyperlipidemia, unspecified; I10 Essential (primary) hypertension; J44.9 Chronic obstructive pulmonary disease, unspecified; Z87.891 Personal history of nicotine dependence; Z79.01 Long term (current) use of anticoagulants; Z79.51 Long term (current) use of inhaled steroids; Z79.899 Other long term (current) drug therapy; Z99.81 Dependence on supplemental oxygen; Z88.1 Allergy status to other antibiotic agents; Z88.5 Allergy status to narcotic agent; Z98.890 Other specified postprocedural states; W19.XXXA Unspecified fall, initial encounter; Y93.89 Activity, other specified; Y92.002 Bathroom of unspecified non-institutional (private) residence as the place of occurrence of the external cause
CPT/HCPCS: 36415; 70450; 71045; 72125; 72170; 80053; 82550; 82553; 83735; 84100; 84484; 85025; 85379; 85610; 85730; 93005; 96360; 96361; 99284

== ENCOUNTER → 2018-02-02 | Outpatient (CLI) | payer MEDICARE, BC ==
[2018-02-02 09:31] LABS: ALT 33 U/L (9-52); AST 16 U/L (14-36); Albumin 3.4 g/dL (3.5-5.0); Alkaline Phosphatase 51 U/L (38-126); Blood Urea Nitrogen 15 mg/dL (7-17); Calcium 8.8 mg/dL (8.4-10.2); Chloride 95 mmol/L (98-107); Cholesterol 126 mg/dL (<200); Glucose 90 mg/dL (74-99); HDL Cholesterol 69 mg/dL (40-60); LDL Cholesterol,Calculated 47 mg/dL (0-99); Potassium 4.5 mmol/L (3.5-5.1); Sodium 141 mmol/L (137-145); Total Bilirubin 0.8 mg/dL (0.2-1.3); Total Protein 5.4 g/dL (6.3-8.2); Triglycerides 49 mg/dL (<150)
[2018-02-02 09:37] LABS: Anion Gap 3 mmol/L
[2018-02-02 10:00] LABS: Carbon Dioxide 43 mmol/L (22-30)
== END | disposition home or self-care (01) ==
LOC: LABWHC1 08:14
PROVIDERS: ATTEND Internal Medicine Interventional Cardiology
DX: E78.2 Mixed hyperlipidemia (principal)
CPT/HCPCS: 36415; 80053; 80061

== ENCOUNTER → 2018-12-11 | Outpatient (CLI) | payer MEDICARE, BC ==
--- NOTE | 2018-12-11 11:44 | MM ---
Reason for exam: additional evaluation requested from prior study. Last mammogram was performed 1 year and 1 month ago. History: Patient is postmenopausal, has history of breast cancer at age 81, and has history of high-risk lesion on a previous biopsy at age 74. Malignant MG pre op needle loc RT of the right breast, April 24, 2017. Malignant US biopsy breast VAD RT of the right breast, March 27, 2017. Benign MG stereo VAD BX LT of the left breast, September 09, 2015. High risk left breast needle localization of both breasts, September 20, 2010. High risk left mammotome panel of the left breast, September 01, 2010. Benign left US cyst aspiration ea add of the left breast, January 04, 2006. Benign left US cyst aspiration of the left breast, January 04, 2006. Benign stereotactic core biopsy of the right breast, June 30, 2000. Benign cyst aspiration of the left breast, March 03, 1998. Physical Findings: Nurse did not find any significant physical abnormalities on exam. MG 3D Diag Mammo W/Cad ERIN Bilateral CC, MLO, and XCCL view(s) were taken. Prior study comparison: November 09, 2017, bilateral MG 3d diag mammo w/cad ERIN. March 27, 2017, right breast MG diagnostic mammo RT wo CAD. The breast tissue is heterogeneously dense. This may lower the sensitivity of mammography. Benign appearing bilateral calcifications. No suspicious abnormality. Post surgical change bilaterally. No significant new findings when compared with previous films. These results were verbally communicated with the patient and result sheet given to the patient on 12/11/18. ASSESSMENT: Benign, BI-RAD 2 RECOMMENDATION: Follow-up diagnostic mammogram of both breasts in 1 year.
== END | disposition home or self-care (01) ==
LOC: RADMAMWWP 10:43
PROVIDERS: ATTEND Internal Medicine Hematology & Oncology
DX: Z08 Encounter for follow-up examination after completed treatment for malignant neoplasm (principal); Z85.3 Personal history of malignant neoplasm of breast
CPT/HCPCS: 77066; G0279; 77062